=== PATIENT | female | born 1935 | race Caucasian/White ===

== ENCOUNTER → 2021-02-19 | Outpatient (CLI) | payer MEDICARE ==
--- NOTE | 2021-02-19 18:03 | Diagnostic Imaging Report ---
PROCEDURE: MR imaging left lower extremity without contrast. TECHNIQUE: Multiplanar, multisequence non contrast enhanced MR imaging of the left lower extremity was accomplished. INDICATION: Ulceration of the left 3rd toe. COMPARISON: None available. FINDINGS: There are hammertoe deformities of all the lesser digits. At the dorsal aspect of the 3rd toe, there is an ulcer as demarcated by a skin marker. Deep to the ulcer, there is abnormal T2 hyperintense bone marrow edema and T1 hypointense marrow replacement involving the head of the proximal phalanx, as well as the entire middle and distal phalanges. There is some mild bone marrow edema involving the distal one-half of the 3rd metatarsal, but there is no associated marrow replacement. The remainder of the osseous structures in the forefoot maintain normal marrow signal without osteomyelitis. There is some mild fatty atrophy of intrinsic musculature of the foot which may be due to chronic longstanding diabetes. Mild subcutaneous and dermal skin thickening in dorsal aspect of foot could be due to cellulitis. IMPRESSION: 1. 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 2. Abnormal edema like signal within the distal one half of the 3rd metatarsal could be reactive hyperemia from adjacent infection versus early osteomyelitis. Dictated by: Dictated on workstation # [id number]
== END ==
LOC: RAD 10:48
PROVIDERS: ATTEND Podiatrist Foot & Ankle Surgery
DX: L97.529 Non-pressure chronic ulcer of other part of left foot with unspecified severity (principal); M86.9 Osteomyelitis, unspecified

== ENCOUNTER 2021-03-02 06:20 | Outpatient (RCR) | payer MEDICARE | END 2021-05-31 | disposition home or self-care (01) | LOC: PREOP 06:20 → EDSTATUS 10:00 | PROVIDERS: ATTEND Podiatrist Foot & Ankle Surgery | DX: Z01.818 Encounter for other preprocedural examination (principal) ==

== ENCOUNTER 2022-02-22 16:30 | Emergency (ER) | payer MEDICARE ==
[~2022-02-22] VITALS: Ht 167.7 cm; Wt 52.1 kg
[2022-02-22 16:49] LABS: BASOPHILS % (AUTO) 0 % (0-10); EOSINOPHILS % (AUTO) 0 % (0-10); HEMATOCRIT 42 % (35-52); HEMOGLOBIN 14.2 g/dL (11.5-16.0); LYMPHOCYTES # (AUTO) 0.8 10^3/uL (1.0-4.0); LYMPHOCYTES % (AUTO) 14 % (12-44); MEAN CORPUSCULAR HEMOGLOBIN 30 pg (25-34); MEAN CORPUSCULAR HGB CONC 34 g/dL (32-36); MEAN CORPUSCULAR VOLUME 88 fL (80-99); MEAN PLATELET VOLUME 9.6 fL (9.0-12.2); MONOCYTES # (AUTO) 0.3 10^3/uL (0.0-1.0); MONOCYTES % (AUTO) 6 % (0-12); NEUTROPHILS # (AUTO) 4.5 10^3/uL (1.8-7.8); NEUTROPHILS % (AUTO) 79 % (42-75); PLATELET COUNT 158 10^3/uL (130-400); WHITE BLOOD COUNT 5.7 10^3/uL (4.3-11.0)
--- NOTE | 2022-02-22 16:50 | ED General ---
General Stated Complaint: COVID +, LOW O2 Source of Information: Patient Exam Limitations: No Limitations History of Present Illness Date Seen by Provider: Feb 22, 2022 Time Seen by Provider: 16:46 Initial Comments To ER by EMS from [facility] with reports of hypoxia. She tested positive for COVID yesterday. On routine vital sign check today she was found to be hypoxic with oxygen saturation of 89% on room air. She denies any shortness of breath. She is not sure if she had a COVID-vaccine, she tells me she is not sure what COVID is but she thinks maybe her sister had it. Timing/Duration: 1-2 Days Severity: Mild Associated Systoms: No Cough, No Diaphoresis, No Fever/Chills Allergies and Home Medications Allergies Coded Allergies: No Known Drug Allergies (Unverified , 02/22/22) Patient Home Medication List Home Medication List Reviewed: Yes Review of Systems Review of Systems Constitutional: see HPI EENTM: see HPI Respiratory: no symptoms reported Cardiovascular: no symptoms reported Genitourinary: no symptoms reported Musculoskeletal: no symptoms reported Skin: no symptoms reported Psychiatric/Neurological: No Symptoms Reported Hematologic/Lymphatic: No Symptoms Reported Immunological/Allergic: no symptoms reported Physical Exam Vital Signs Vital Signs - First Documented 02/22/22 16:34 Temp 37.7 Pulse 95 Resp 14 B/P (MAP) 146/100 (115) Pulse Ox 93 O2 Delivery Room Air Capillary Refill : Height, Weight, BMI Height: '" Weight: lbs. oz. kg; BMI Method: General Appearance: No Apparent Distress, WD/WN, Thin, Other (For us she is 93% on room air.) Eyes: Bilateral Eye Normal Inspection, Bilateral Eye PERRL, Bilateral Eye EOMI Neck: Full Range of Motion, Normal Inspection Respiratory: No Accessory Muscle Use, No Respiratory Distress Cardiovascular: Regular Rate, Rhythm, Normal Peripheral Pulses Gastrointestinal: Normal Bowel Sounds, Non Tender, Soft Extremity: Normal Capillary Refill, Normal Inspection Neurologic/Psychiatric: Alert Skin: Normal Color, Warm/Dry Progress/Results/Core Measures Suspected Sepsis SIRS Temperature: Pulse: Respiratory Rate: Laboratory Tests 02/22/22 16:39: White Blood Count 5.7 Blood Pressure / Mean: Laboratory Tests 02/22/22 16:39: Creatinine 0.68, Platelet Count 158, Total Bilirubin 0.5 Results/Orders Lab Results Laboratory Tests Test 02/22/22 16:39 02/22/22 17:03 Range/Units White Blood Count 5.7 4.3-11.0 10^3/uL Red Blood Count 4.73 3.80-5.11 10^6/uL Hemoglobin 14.2 11.5-16.0 g/dL Hematocrit 42 35-52 % Mean Corpuscular Volume 88 80-99 fL Mean Corpuscular Hemoglobin 30 25-34 pg Mean Corpuscular Hemoglobin Concent 34 32-36 g/dL Red Cell Distribution Width 13.4 10.0-14.5 % Platelet Count 158 130-400 10^3/uL Mean Platelet Volume 9.6 9.0-12.2 fL Immature Granulocyte % (Auto) 0 % Neutrophils (%) (Auto) 79 H 42-75 % Lymphocytes (%) (Auto) 14 12-44 % Monocytes (%) (Auto) 6 0-12 % Eosinophils (%) (Auto) 0 0-10 % Basophils (%) (Auto) 0 0-10 % Neutrophils # (Auto) 4.5 1.8-7.8 10^3/uL Lymphocytes # (Auto) 0.8 L 1.0-4.0 10^3/uL Monocytes # (Auto) 0.3 0.0-1.0 10^3/uL Eosinophils # (Auto) 0.0 0.0-0.3 10^3/uL Basophils # (Auto) 0.0 0.0-0.1 10^3/uL Immature Granulocyte # (Auto) 0.0 0.0-0.1 10^3/uL D-Dimer 1.05 H 0.00-0.49 UG/ML Sodium Level 133 L 135-145 MMOL/L Potassium Level 3.5 L 3.6-5.0 MMOL/L Chloride Level 94 L 98-107 MMOL/L Carbon Dioxide Level 25 21-32 MMOL/L Anion Gap 14 5-14 MMOL/L Blood Urea Nitrogen 9 7-18 MG/DL Creatinine 0.68 0.60-1.30 MG/DL Estimat Glomerular Filtration Rate 85 BUN/Creatinine Ratio 13 Glucose Level 134 H 70-105 MG/DL Calcium Level 8.8 8.5-10.1 MG/DL Corrected Calcium 9.0 8.5-10.1 MG/DL Total Bilirubin 0.5 0.1-1.0 MG/DL Aspartate Amino Transf (AST/SGOT) 33 5-34 U/L Alanine Aminotransferase (ALT/SGPT) 17 0-55 U/L Alkaline Phosphatase 56 40-136 U/L C-Reactive Protein High Sensitivity 5.17 H 0.00-0.50 MG/DL B-Type Natriuretic Peptide 43.0 <100.0 PG/ML Total Protein 6.8 6.4-8.2 GM/DL Albumin 3.7 3.2-4.5 GM/DL Bedside Blood Gas pH (LAB) 7.486 H 7.310-7.410 Bedside Blood Gas pCO2 (LAB) 36.2 L 41.0-51.0 mmHg Bedside Blood Gas pO2 (LAB) 60 L 80-105 mmHg Bedside Blood Gas HCO3 (LAB) 27.4 23.0-28.0 mmol/L POC Blood Gas Total CO2 Calc 28 24-29 mmol/L Bedside Bl Gas O2 Saturation (Calc) 92 L 95-98 % Bedside Arterial Blood Base Excess 4 H -2-3 mmol/L My Orders Orders - POLINA CRUMP APRN Cbc With Automated Diff (02/22/22 16:42) Comprehensive Metabolic Panel (02/22/22 16:42) Fibrin Degradation Products (02/22/22 16:42) Ferritin (02/22/22 16:42) Hs C Reactive Protein (02/22/22 16:42) Bnp Serina (02/22/22 16:42) Chest 1 View, Ap/Pa Only (02/22/22 16:42) Ed Iv/Invasive Line Start (02/22/22 16:42) Vital Signs/I&O 02/22/22 16:34 Temp 37.7 Pulse 95 Resp 14 B/P (MAP) 146/100 (115) Pulse Ox 93 O2 Delivery Room Air Capillary Refill : Departure Communication (Admissions) 1753-still 93% room air NAME: JACQUI MG [facility] REC#: [id number] PT STATUS: REG ER : 1935 PHYSICIAN: POLINA CRUMP APRN ADMIT DATE: 02/22/22/ER Signed Date of Exam:02/22/22 CHEST 1 VIEW, AP/PA ONLY Indication: Hypoxemia Portable chest 5:01 PM There appear to be emphysematous changes in the lungs. There are no infiltrates, effusions or pneumothoraces. IMPRESSION: COPD. No acute abnormalities seen. Dictated by: Dictated on workstation # [id number] Dict: 02/22/221715 Trans: 02/22/221716 TC [id number] Interpreted by: GEORGETTE BOB MD Electronically signed by: GEORGETTE BOB MD 02/22/221716 Impression Primary Impression: COVID-19 Disposition: 01 HOME, SELF-CARE Condition: Stable Departure-Patient Inst. Decision time for Depature: 17:54 Patient Instructions: COVID-19 (DC) POLINA CRUMP APRN Feb 22, 2022 16:50
[2022-02-22 17:01] LABS: ALBUMIN 3.7 GM/DL (3.2-4.5); POTASSIUM 3.5 MMOL/L (3.6-5.0)
[2022-02-22 17:03] LABS: CALCIUM 8.8 MG/DL (8.5-10.1)
[2022-02-22 17:04] LABS: TOTAL PROTEIN 6.8 GM/DL (6.4-8.2)
[2022-02-22 17:06] LABS: BILIRUBIN,TOTAL 0.5 MG/DL (0.1-1.0)
[2022-02-22 17:08] LABS: CREATININE SERUM 0.68 MG/DL (0.60-1.30)
--- NOTE | 2022-02-22 17:18 | Diagnostic Imaging Report ---
Indication: Hypoxemia Portable chest 5:01 PM There appear to be emphysematous changes in the lungs. There are no infiltrates, effusions or pneumothoraces. IMPRESSION: COPD. No acute abnormalities seen. Dictated by: Dictated on workstation # [id number]
[2022-02-22] MEDS ORDERED: BEBTELOVIMAB 175 MG/2 ML VIAL IV ONE (18:00)
[2022-02-22 19:22] VITALS: BP 169/90
== END 2022-02-22 17:34 | disposition home or self-care (01) ==
LOC: EDUNIT# 16:30 → ER 16:35
DX: U07.1 COVID-19 (principal); Z73.0 Burn-out
CPT/HCPCS: 36415; 71045; 80053; 82728; 82805; 83880; 85025; 85379; 86141

== ENCOUNTER 2023-05-24 06:53 | Emergency (ER) | payer MEDICARE, MEDICAID ==
[~2023-05-24] VITALS: Ht 160 cm; Wt 49.0 kg
[2023-05-24 07:13] LABS: BASOPHILS % (AUTO) 1 % (0-10); EOSINOPHILS # (AUTO) 0.1 10^3/uL (0.0-0.3); EOSINOPHILS % (AUTO) 2 % (0-10); HEMATOCRIT 43 % (35-52); HEMOGLOBIN 13.5 g/dL (11.5-16.0); LYMPHOCYTES # (AUTO) 1.6 10^3/uL (1.0-4.0); LYMPHOCYTES % (AUTO) 34 % (12-44); MEAN CORPUSCULAR HEMOGLOBIN 30 pg (25-34); MEAN CORPUSCULAR HGB CONC 32 g/dL (32-36); MEAN CORPUSCULAR VOLUME 95 fL (80-99); MEAN PLATELET VOLUME 9.3 fL (9.0-12.2); MONOCYTES # (AUTO) 0.4 10^3/uL (0.0-1.0); MONOCYTES % (AUTO) 7 % (0-12); NEUTROPHILS # (AUTO) 2.7 10^3/uL (1.8-7.8); NEUTROPHILS % (AUTO) 56 % (42-75); PLATELET COUNT 247 10^3/uL (130-400); WHITE BLOOD COUNT 4.8 10^3/uL (4.3-11.0)
[2023-05-24 07:25] LABS: CHLORIDE 107 MMOL/L (98-107); POTASSIUM 3.5 MMOL/L (3.6-5.0); SODIUM 140 MMOL/L (135-145)
[2023-05-24 07:26] LABS: CALCIUM 9.1 MG/DL (8.5-10.1)
[2023-05-24 07:27] LABS: GLUCOSE 91 MG/DL (70-105); TOTAL PROTEIN 7.5 GM/DL (6.4-8.2)
[2023-05-24 07:28] LABS: CARBON DIOXIDE 25 MMOL/L (21-32)
[2023-05-24 07:29] LABS: BILIRUBIN,TOTAL 0.5 MG/DL (0.1-1.0)
[2023-05-24 07:31] LABS: ALKALINE PHOSPHATASE 81 U/L (40-136); CREATININE SERUM 0.72 MG/DL (0.60-1.30); GFR ESTIMATED 81
[2023-05-24 07:32] LABS: BUN/CREATININE RATIO 22; PROTHROMBIN TIME PATIENT 13.3 SEC (12.2-14.7)
[2023-05-24 07:33] LABS: MAGNESIUM 2.4 MG/DL (1.6-2.4)
[2023-05-24 07:34] LABS: ALANINE AMINOTRANSFERASE 14 U/L (0-55)
--- NOTE | 2023-05-24 07:56 | Diagnostic Imaging Report ---
EXAM: CHEST 1 VIEW, AP/PA ONLY INDICATION: Chest pain. COMPARISON: 02/22/2022. FINDINGS: Normal heart size and central pulmonary vascularity. Biapical scarring. Hyperinflation. No pleural effusion or pneumothorax. No acute osseous findings. IMPRESSION: 1. COPD. 2. No acute cardiac pulmonary findings. Dictated by: Dictated on workstation # [id number]
--- NOTE | 2023-05-24 08:13 | ED Chest Pain ---
General Chief Complaint: Chest Pain Stated Complaint: CP Nursing Triage Note: ARRIVED VIA EMS FROM [facility]. PT WOKE UP WITH CHEST PAIN. DENIES CHEST PAIN AT THIS TIME. ONLY COMPLAINT IS COLD FEET. ASA 324MG GIVEN IN ROUTE. Source: patient, family Exam Limitations: no limitations History of Present Illness Date Seen by Provider: May 24, 2023 Time Seen by Provider: 07:18 Initial Comments Patient here by EMS from residential with report of vague complaint of central chest pain this morning that apparently has resolved. Patient has history of CHF. She does follow with Dr. Sharp. Patient does have advanced dementia. Daughter is at bedside. Patient denies any current complaint and does not remember much about this morning but does remember that she had some chest pain after she woke up. She is not sure if she woke up with the pain or if it started afterwards. That was about 5:30 AM this morning. Denies nausea or vomi ting. Denies current pain. Does have swelling of both legs which is typical and she is currently on furosemide and is to start wearing her leg stockings. Those are ordered and will start soon. Patient is otherwise pleasant and in no distress. Patient does not aspirin daily Timing/Duration: 1-3 hours, gone now Severity/Quality: mild, aching Location: central Radiation: no radiation Prior CP/Workup: echocardiography ASA po [employer] OFFICER: Yes NTG SL [employer]INE SAF[employer]Y OFFICER: No Associated Symptoms: No abdominal pain, No nausea/vomiting, No shortness of breath, No weakness Allergies and Home Medications Allergies Coded Allergies: No Known Drug Allergies (Unverified , 02/22/22) Patient Home Medication List Home Medication List Reviewed: Yes Review of Systems Review of Systems Constitutional: No fever EENTM: No Symptoms Reported Respiratory: Denies Cough Cardiovascular: See HPI, Edema Gastrointestinal: Denies Vomiting Musculoskeletal: No muscle pain Past Olomzbx-Ehdevw-Vftxio Hx Patient Social History Tobacco Use?: No Substance use?: No Past Medical History Respiratory: Yes Chronic Bronchitis Cardiac: Yes Chronic Edema/Swelling, Hypertension Neurological: Yes Dementia Gastrointestinal: Yes Chronic Constipation Physical Exam Vital Signs Vital Signs - First Documented 05/24/23 06:53 Temp 36.3 Pulse 68 Resp 16 B/P (MAP) 169/71 (103) Pulse Ox 99 O2 Delivery Room Air Capillary Refill : Less Than 3 Seconds Height, Weight, BMI Height: '" Weight: lbs. oz. kg; 19.00 BMI Method: General Appearance: No Apparent Distress, WD/WN HEENT: PERRL/EOMI, Pharynx Normal Neck: Non Tender, Supple Respiratory: Lungs Clear, Normal Breath Sounds Cardiovascular: Regular Rate, Rhythm, No Murmur Gastrointestinal: Non Tender, Soft Extremity: Non Tender, Pedal Edema (2+ bilateral lower extremities up to level of knee) Neurologic/Psychiatric: Alert, Normal Mood/Affect, Other (Confused to time and situation but knows self and daughter and this apparently was baseline per the daughter) Skin: Normal Color, Warm/Dry Progress/Results/Core Measures Results/Orders Lab Results Laboratory Tests Test 05/24/23 07:05 05/24/23 09:08 Range/Units White Blood Count 4.8 4.3-11.0 10^3/uL Red Blood Count 4.49 3.80-5.11 10^6/uL Hemoglobin 13.5 11.5-16.0 g/dL Hematocrit 43 35-52 % Mean Corpuscular Volume 95 80-99 fL Mean Corpuscular Hemoglobin 30 25-34 pg Mean Corpuscular Hemoglobin Concent 32 32-36 g/dL Red Cell Distribution Width 14.0 10.0-14.5 % Platelet Count 247 130-400 10^3/uL Mean Platelet Volume 9.3 9.0-12.2 fL Immature Granulocyte % (Auto) 0 % Neutrophils (%) (Auto) 56 42-75 % Lymphocytes (%) (Auto) 34 12-44 % Monocytes (%) (Auto) 7 0-12 % Eosinophils (%) (Auto) 2 0-10 % Basophils (%) (Auto) 1 0-10 % Neutrophils # (Auto) 2.7 1.8-7.8 10^3/uL Lymphocytes # (Auto) 1.6 1.0-4.0 10^3/uL Monocytes # (Auto) 0.4 0.0-1.0 10^3/uL Eosinophils # (Auto) 0.1 0.0-0.3 10^3/uL Basophils # (Auto) 0.0 0.0-0.1 10^3/uL Immature Granulocyte # (Auto) 0.0 0.0-0.1 10^3/uL Prothrombin Time 13.3 12.2-14.7 SEC INR Comment 1.0 0.8-1.4 Activated Partial Thromboplast Time 36 H 24-35 SEC Sodium Level 140 135-145 MMOL/L Potassium Level 3.5 L 3.6-5.0 MMOL/L Chloride Level 107 98-107 MMOL/L Carbon Dioxide Level 25 21-32 MMOL/L Anion Gap 8 5-14 MMOL/L Blood Urea Nitrogen 16 7-18 MG/DL Creatinine 0.72 0.60-1.30 MG/DL Estimat Glomerular Filtration Rate 81 BUN/Creatinine Ratio 22 Glucose Level 91 70-105 MG/DL Calcium Level 9.1 8.5-10.1 MG/DL Corrected Calcium 9.1 8.5-10.1 MG/DL Magnesium Level 2.4 1.6-2.4 MG/DL Total Bilirubin 0.5 0.1-1.0 MG/DL Aspartate Amino Transf (AST/SGOT) 24 5-34 U/L Alanine Aminotransferase (ALT/SGPT) 14 0-55 U/L Alkaline Phosphatase 81 40-136 U/L Myoglobin 53.7 10.0-92.0 NG/ML Troponin I < 0.028 < 0.028 <0.028 NG/ML B-Type Natriuretic Peptide 147.1 H <100.0 PG/ML Total Protein 7.5 6.4-8.2 GM/DL Albumin 4.0 3.2-4.5 GM/DL My Orders Orders - GEORGETTE STUART MD Ekg Tracing (05/24/23 07:00) Cbc And Automated Diff (05/24/23 07:02) Magnesium (05/24/23 07:02) Chest 1 View, Ap/Pa Only (05/24/23 07:02) Ekg Tracing (05/24/23 07:02) Comprehensive Metabolic Panel (05/24/23 07:02) Myoglobin Serum (05/24/23 07:02) Protime With Inr (05/24/23 07:02) Partial Thromboplastin Time (05/24/23 07:02) O2 (05/24/23 07:02) Monitor-Rhythm Ecg Trace Only (05/24/23 07:02) Lipid Panel (05/25/23 06:00) Ed Iv/Invasive Line Start (05/24/23 07:02) Troponin I Serina (05/24/23 07:02) Bnp Iroquois (05/24/23 07:27) Troponin I Iroquois (05/24/23 08:54) Vital Signs/I&O 05/24/23 06:53 Temp 36.3 Pulse 68 Resp 16 B/P (MAP) 169/71 (103) Pulse Ox 99 O2 Delivery Room Air Blood Pressure Mean: 103 Progress Progress Note : Progress Note Seen and evaluated. We will initiate chest pain protocol with IV, labs, EKG and chest x-ray. Labs include CBC, CMP, troponin, BNP and coags. Patient is already on aspirin and is chest pain-free so that is not needed currently. She is otherwise comfortable currently. Monitor patient. Differential diagnosis includes heart failure, cardiac event, electrolyte abnormality 0812: Chest x-ray shows no obvious infiltrate or failure pattern on my interpretation. EKG as noted below. CBC is grossly normal. CMP is grossly normal with normal troponin and BNP is only slightly elevated. Coags show no gross abnormality. Given her negative troponin, resolution of symptoms and minimal distress, we will just repeat troponin at 9 AM for 2-hour rule out. If this is negative then I think she can safely return to the nursing facility. This was discussed with patient and family who agree. Monitor patient. 0951: Repeat troponin drawn and has processed and is still negative. I think the patient can safely be discharged back to nursing care facility. Discussed with family who agrees. Patient remains pain-free. Discharged back to facility with return precautions. Patient and family verbalized understanding of instructions and agreement with plan. Initial ECG Impression Date: May 24, 2023 Initial ECG Impression Time: 07:11 Initial ECG Rate: 70 Initial ECG Rhythm: Normal Sinus Comment Sinus rhythm with first-degree AV block. Occasional PACs noted. Normal axis. No evidence of ST elevation PR. Interpreted by me. Diagnostic Imaging Diagonstic Imaging: Xray Plain Films/CT/US/NM/MRI: chest Comments [facility]. [place], [place] NAME: JACQUI MG [facility] REC#: [id number] PT STATUS: REG ER : 1935 PHYSICIAN: GEORGETTE STUART MD ADMIT DATE: 05/24/23/ER Draft Date of Exam:05/24/23 CHEST 1 VIEW, AP/PA ONLY EXAM: CHEST 1 VIEW, AP/PA ONLY INDICATION: Chest pain. COMPARISON: 02/22/2022. FINDINGS: Normal heart size and central pulmonary vascularity. Biapical scarring. Hyperinflation. No pleural effusion or pneumothorax. No acute osseous findings. IMPRESSION: 1. COPD. 2. No acute cardiac pulmonary findings. Dictated on workstation # [id number] Dict: 05/24/23 0740 Trans: 05/24/23 0755 [facility] [id number] Interpreted by: GRETA STEWART Departure Impression Primary Impression: Chest pain Qualified Codes: R07.9 - Chest pain, unspecified Disposition: HOME, SELF-CARE Condition: Improved Departure-Patient Inst. Decision time for Depature: 09:52 Referrals: BIRGIT PRIETO DO (PCP/Family) Primary Care Physician Patient Instructions: Chest Pain (DC) Add. Discharge Instructions: All discharge instructions reviewed with patient and/or family. Voiced understanding. Continue home medications as previously prescribed. Follow-up with your doctor in a few days for recheck. Return for worse pain, fever, vomiting, weakness, breathing problems, chest pain or other concerns as needed. Copy Copies To 1: BIRGIT PRIETO TIMOTHY D MD May 24, 2023 08:13
[2023-05-24 10:08] VITALS: BP 156/75
== END 2023-05-24 10:08 | disposition home or self-care (01) ==
LOC: EDUNIT# 06:53 → ER 06:55
DX: R07.9 Chest pain, unspecified (principal); M79.89 Other specified soft tissue disorders; Z79.899 Other long term (current) drug therapy
CPT/HCPCS: 36415; 71045; 80053; 83735; 83874; 83880; 84484; 85025; 85610; 85730; 93005; 93041